=== PATIENT | male | born 1965 | race Caucasian/White ===

== ENCOUNTER 2024-02-16 08:11 | Day surgery (SDC) | payer OTHER ==
[2024-02-13 13:31] LABS: BASOPHILS % (AUTO) 0.8 % (0-1); EOSINOPHILS # (AUTO) 0.2 X10'3 (0-0.9); EOSINOPHILS % (AUTO) 4.8 % (0-6); LYMPHOCYTES # (AUTO) 1.7 X10'3 (1.1-4.8); LYMPHOCYTES % (AUTO) 33.9 % (21-51); MEAN CORPUSCULAR HEMOGLOBIN 30.3 PG (27.0-31.0); MEAN CORPUSCULAR HGB CONC 33.4 g/dL (33.0-36.5); MEAN CORPUSCULAR VOLUME 90.9 FL (78-98); MONOCYTES # (AUTO) 0.4 X10'3 (0-0.9); MONOCYTES % (AUTO) 7.2 % (2-12); NEUTROPHILS # (AUTO) 2.7 X10'3 (1.8-7.7); NEUTROPHILS % (AUTO) 53.3 % (42-75); PRE OP HEMATOCRIT 40.8 % (42.0-52.0); PRE OP HEMOGLOBIN 13.6 g/dL (14.0-17.9); PRE OP PLATELET COUNT 236 X10'3 (140-440); RED BLOOD COUNT 4.49 X10'6 (4.70-6.10); RED CELL DISTRIBUTION WIDTH 14.6 % (11.5-14.5)
[2024-02-13 13:49] LABS: ALBUMIN 3.9 G/DL (3.4-5.0); ALKALINE PHOSPHATASE 104 IU/L (46-116); BLOOD UREA NITROGEN 14 MG/DL (7-18); BUN/CREATININE RATIO 18.2 (10.0-20.0); CALCIUM 9.4 MG/DL (8.5-10.1); CHLORIDE 104 MMOL/L (99-107); CREATININE 0.77 MG/DL (0.60-1.10); PRE OP ALT 40 U/L (30-65); PRE OP ANION GAP 10 (8-16); PRE OP AST 26 U/L (10-37); PRE OP BILIRUB, TOTAL 0.8 MG/DL (0.0-1.0); PRE OP GLUCOSE 93 MG/DL (70-104); PRE OP POTASSIUM 3.8 MMOL/L (3.4-5.1); PRE OP SODIUM 142 MMOL/L (135-145); TOTAL CARBON DIOXIDE 27.8 MMOL/L (24-32); TOTAL PROTEIN 7.7 G/DL (6.4-8.2); eGFR > 90 ML/MIN
[2024-02-16] VITALS (9 sets, daily range): BP systolic 120–147; BP diastolic 9–97; PULSE 43–51; RESP 9–16; TEMP 98; O2SAT 96–100
[~2024-02-16] VITALS: Ht 175.3 cm; Wt 104.0 kg
[2024-02-16] MEDS: ceFAZolin 2gm in dextrose, iso 50 ML IV ONE (05:30)
[~2024-02-16 08:11] MED LIST: ATOR40TA PO; DULO-31 PO; FLO0.4C PO; GABA-530 PO; IRON PO; MULT-1085 PO; PANT40TA54 PO
[2024-02-16] MEDS: ringers solution, lacted 1,000 ML IV SCH (08:51)
[2024-02-16] MEDS: famotidine 20mg tablet PO ONE (08:51)
[2024-02-16] MEDS ORDERED: proCHLORperazine 10 MG/2 ml inj IV PRN (08:55)
[2024-02-16] MEDS ORDERED: ondansetron/PF 4mg/2ml inj IV PRN (08:55)
[2024-02-16] MEDS ORDERED: morphine 2 MG/ML inj. syringe IV PRN (08:55)
[2024-02-16] MEDS ORDERED: labetalol 20mg/4ml (5mg/ml) syringe IV PRN (08:55)
[2024-02-16] MEDS ORDERED: meperidine/PF 25mg/ml syringe IV PRN ×2 (08:55)
[2024-02-16] MEDS ORDERED: enalaprilat dihydrate 2.5mg/2ml vial IV PRN (08:55)
[2024-02-16] MEDS ORDERED: ringers solution, lacted 1,000 ML IV SCH (08:55)
[2024-02-16] MEDS ORDERED: morphine 4 MG/ML inj SYRINge IV PRN (08:55)
[2024-02-16] MEDS ORDERED: BUPIVAcaine 2.5mg/ml inj 50ml vial (contains preservative) ONE (09:06)
[2024-02-16] MEDS ORDERED: LIDOcaine 1% (10mg/ml)w/preservative inj. 20ml MDV ONE (09:06)
[2024-02-16] MEDS ORDERED: LIDOcaine 1% 30ml preserv. free vial ONE (09:09)
[2024-02-16] MEDS ORDERED: LIDOcaine 2% (20mg/ml) 5ml vial ONE ×2 (09:16→10:20)
[2024-02-16] MEDS ORDERED: BUPIVAcaine/PF 2.5mg/ml (0.25%) 10ml vial ONE (10:20)
[2024-02-16] MEDS ORDERED: midazolam 1 mg/ML 2ml injection ONE (10:34)
[2024-02-16] MEDS ORDERED: fentaNYL/PF 50MCG/1 ML 2ML syringe ONE (10:34)
[2024-02-16] MEDS ORDERED: propofol inj 20 ML IV ONE (11:13)
[2024-02-16] MEDS: BUPIVAcaine/PF 2.5mg/ml (0.25%) 10ml vial IJ ONE (11:19)
[2024-02-16] MEDS: meperidine/PF 25mg/ml syringe IV PRN (12:56)
[2024-02-16] MEDS ORDERED: HYDROcodone/acetaminophen 10/325mg tab PO ONE (13:55)
== END 2024-02-16 14:14 | disposition home or self-care (01) ==
LOC: PAS 08:11
PROVIDERS: ATTEND Orthopaedic Surgery Hand Surgery
DX: M19.042 Primary osteoarthritis, left hand (principal); F32.A Depression, unspecified; K21.9 Gastro-esophageal reflux disease without esophagitis; Z87.442 Personal history of urinary calculi; D64.9 Anemia, unspecified; Z88.8 Allergy status to other drugs, medicaments and biological substances; Z79.899 Other long term (current) drug therapy; Z87.891 Personal history of nicotine dependence; Z98.890 Other specified postprocedural states; Z98.84 Bariatric surgery status; E66.01 Morbid (severe) obesity due to excess calories; Z68.33 Body mass index [BMI] 33.0-33.9, adult
CPT/HCPCS: 26850; 36415; 80053; 82948; 85025; 93005; C1713; J0690; J2003; J2175; J2250; J2704; J3010; J3490; J7030; J7120; Z7506; Z7512; A4215; A4618; A7000; C1769